=== PATIENT | female | born 1985 | race Caucasian/White ===

== ENCOUNTER 2017-09-06 14:30 | Day surgery (SDC) | payer BC ==
[~2017-09-06] VITALS: Ht 170.2 cm; Wt 93.0 kg
[~2017-09-06 14:30] MED LIST: SPRINTEC1 EACH PO; TYLENOL EXTRA500 MG PO
[2017-09-06 15:07] VITALS: BP 124/70
[2017-09-06 15:29] LABS: BASOPHIL (%) 0.3 % (0-1); EOSINOPHIL (%) 1.1 % (0-5); EOSINOPHIL COUNT 0.1 K/uL (0-0.3); HEMATOCRIT 37.2 % (36.0-46.0); HEMOGLOBIN 12.5 G/DL (11.9-15.5); IMMATURE GRANULOCYTE (%) 0.2 % (0.0-0.7); LYMPHOCYTE (%) 25.3 % (15-42); LYMPHOCYTE COUNT 2.5 K/uL (1.0-2.8); MCH 29.7 PG (29.0-34.0); MCHC 33.6 G/DL (30.0-36.0); MCV 88.4 FL (83-99); MONOCYTE (%) 5.7 % (3-12); MONOCYTE COUNT 0.6 K/uL (0-0.8); NEUTROPHIL (%) 67.4 % (45-76); NEUTROPHIL COUNT 6.6 K/uL (1.8-6.4); PLATELET COUNT 234 K/uL (156-360); RBC DIS.WIDTH-CV 12.4 % (11.8-14.6); RBC DIS.WIDTH-SD 40.4 % (39-53); RED BLOOD COUNT 4.21 M/uL (3.80-5.20); WHITE BLOOD COUNT 9.8 K/uL (4.1-10.2)
== END 2017-09-06 17:15 | disposition home or self-care (01) ==
LOC: SDC 14:30
PROVIDERS: Obstetrics & Gynecology
DX: O03.4 Incomplete spontaneous abortion without complication (principal); Z53.29 Procedure and treatment not carried out because of patient's decision for other reasons
CPT/HCPCS: 85025

== ENCOUNTER 2017-09-07 09:09 | Day surgery (SDC) | payer BC ==
[~2017-09-07] VITALS: Ht 170.2 cm; Wt 93.1 kg
[2017-09-07 09:26] VITALS: BP 143/67
[2017-09-07 10:02] LABS: BASOPHIL (%) 0.2 % (0-1); EOSINOPHIL (%) 1.1 % (0-5); EOSINOPHIL COUNT 0.1 K/uL (0-0.3); HEMATOCRIT 38.6 % (36.0-46.0); HEMOGLOBIN 12.5 G/DL (11.9-15.5); IMMATURE GRANULOCYTE (%) 0.2 % (0.0-0.7); LYMPHOCYTE (%) 21.9 % (15-42); LYMPHOCYTE COUNT 2.1 K/uL (1.0-2.8); MCH 28.3 PG (29.0-34.0); MCHC 32.4 G/DL (30.0-36.0); MCV 87.5 FL (83-99); MONOCYTE (%) 6.5 % (3-12); MONOCYTE COUNT 0.6 K/uL (0-0.8); NEUTROPHIL (%) 70.1 % (45-76); NEUTROPHIL COUNT 6.6 K/uL (1.8-6.4); PLATELET COUNT 263 K/uL (156-360); RBC DIS.WIDTH-CV 12.5 % (11.8-14.6); RBC DIS.WIDTH-SD 39.9 % (39-53); RED BLOOD COUNT 4.41 M/uL (3.80-5.20); WHITE BLOOD COUNT 9.4 K/uL (4.1-10.2)
[2017-09-07 11:50] VITALS: BP 121/57
[2017-09-07 12:18] VITALS: BP 113/56
== END 2017-09-07 12:31 | disposition home or self-care (01) ==
LOC: SDC 09:09
PROVIDERS: Obstetrics & Gynecology
PROC: 10D17ZZ Extraction of Products of Conception, Retained, Via Natural or Artificial Opening (ICD-10-PCS; principal; 2017-09-07)
DX: O03.4 Incomplete spontaneous abortion without complication (principal)
CPT/HCPCS: 85025; 88305; J0131; J0330; J1100; J1885; J2250; J2405; Q0175

== ENCOUNTER 2017-12-14 03:02 | Emergency (ER) | payer BC ==
[~2017-12-14] VITALS: Ht 170.2 cm; Wt 94.4 kg
[2017-12-14 05:37] VITALS: BP 109/70
== END 2017-12-14 05:38 | disposition home or self-care (01) ==
LOC: EME 03:02
DX: O20.9 Hemorrhage in early pregnancy, unspecified (principal); R10.9 Unspecified abdominal pain; Z3A.13 13 weeks gestation of pregnancy
CPT/HCPCS: 76801; 76802; 86900; 86901; 99281; 99284

== ENCOUNTER 2018-02-06 17:29 | Outpatient (CLI) | payer BC ==
[2018-02-06 17:54] VITALS: BP 116/63
[2018-02-06] MEDS ORDERED: PRENATAL TABLE1 EAC3 PO (18:04)
== END 2018-02-06 19:15 | disposition home or self-care (01) ==
LOC: LDRP-OP 17:29 → 2WEST 17:30 → LDRP-OP 07-19 08:26
DX: O42.90 Premature rupture of membranes, unspecified as to length of time between rupture and onset of labor, unspecified weeks of gestation (principal); O30.002 Twin pregnancy, unspecified number of placenta and unspecified number of amniotic sacs, second trimester; O31.22X1 Continuing pregnancy after intrauterine death of one fetus or more, second trimester, fetus 1; O43.022 Fetus-to-fetus placental transfusion syndrome, second trimester; Z3A.21 21 weeks gestation of pregnancy
CPT/HCPCS: 59025; 76805; G0378